=== PATIENT | male | born 1935 | race Caucasian/White ===

== ENCOUNTER 2018-07-15 08:53 | Inpatient (IN) | payer OTHER ==
--- NOTE | 2018-07-15 09:30 | EDPHY ---
H & P Time Seen by Provider: 07/15/18 09:12 HPI/ROS: Chief complaint. Abdominal pain HPI. 83-year-old male presents emergency department with 3 day history of abdominal pain. Initially it was more epigastric and now it is right lower quadrant and midline. Hurts to move. It is constant and dull. Does not radiate to his back. No nausea vomiting or diarrhea. No urinary frequency or dysuria. No fever. No chest pain or shortness of breath; he has had previous hernia surgery ROS 10 systems were reviewed and negative with the exception of the elements mentioned in the history of present illness Past Medical/Surgical History: Hernia surgery hypertension, thrombocytopenia Social History: , nonsmoker, no alcohol Smoking Status: Never smoked Physical Exam: General Appearance: Alert well-developed male mild distress vital signs are stable Eyes: Pupils equal and round no pallor or injection. ENT, Mouth: Mucous membranes are moist. Respiratory: There are no retractions, lungs are clear to auscultation. Cardiovascular: Regular rate and rhythm. Gastrointestinal: Abdomen is soft with periumbilical and right lower quadrant tenderness. No masses. Normal bowel sounds Neurological: Awake and alert, sensory and motor exams grossly normal. Skin: Warm and dry, no rashes. Musculoskeletal: Neck is supple nontender. Extremities symmetrical, full range of motion. Psychiatric: Patient is oriented X 3, there is no agitation. Constitutional: Initial Vital Signs Temperature (C) 36.6 C 07/15/18 08:58 Heart Rate 65 07/15/18 08:58 Respiratory Rate 17 07/15/18 08:58 Blood Pressure 188/84 H 07/15/18 08:58 O2 Sat (%) 94 07/15/18 08:58 O2 Delivery Mode Room Air Allergies/Adverse Reactions: amlodipine Allergy (Verified 07/15/18 12:00) Other-Enter Comments atenolol Allergy (Verified 07/15/18 12:00) Other-Enter Comments Home Medications: Medication Instructions Recorded Aspirin [Aspirin 81mg (*)] 81 mg PO DAILY 07/15/18 C/E/Zn/Cu/OM3/DHA/EPA/LUT/ZEAX 1 each PO BID 07/15/18 [Preservision Areds 2 Softgel] Hydroxyurea [Hydrea 500 mg (*)] 500 mg PO MWF@07/15/18 Hydroxyurea [Hydrea 500 mg (*)] 500 mg PO SUTUTHSA 07/15/18 Irbesartan [Avapro 150 mg (*)] 150 mg PO DAILY 07/15/18 Lisinopril 60 mg PO DAILY 07/15/18 Omeprazole 20 mg PO DAILY 07/15/18 Simvastatin [Zocor] 20 mg PO DAILY 07/15/18 Medical Decision Making - Diagnostics EKG Interpretation: EKG interpreted by me shows normal sinus rhythm normal interval. There is left axis deviation and left anterior fascicular block. No significant ST elevation or depression. No arrhythmia. The rate is 70 Imaging Results: Imaging Impressions Abdomen CT 07/15/18 09:38 Impression: 1. Focus of fat stranding and phlegmonous change measuring 4.5 cm subjacent to the omental surface in the supraumbilical mid abdomen. This is adjacent to several small bowel loops but is far from the colon. Differential includes omental infarct, mesenteric infection, or acute fat necrosis, less likely epiploic appendicitis. No definite hernia repair material extends to this level. No drainable abscess at this time. Recommend repeat imaging in 4 weeks to ensure resolution. 2. Reactive ileitis and small amount of mesenteric edema/fluid. 3. Dilatation of the common bile duct measuring up to 1.3 cm. There is also a stone within the gallbladder. Recommend correlation with liver enzymes and obtaining ERCP or MRCP for further evaluation. 4. Right middle lobe nodules measuring up to 5.6 mm. Would consider 12 month follow-up CT. 5. 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 If patient is exhibiting signs of mesenteric ischemia , would consider interventional radiology consultation. Findings and recommendations discussed with TASHA JAMES at 1115 hour, 2018. CT abdomen pelvis reviewed by me and discussed with Radiology shows fat stranding likely due to omental infarct. The common bile duct is also dilated Procedures: IV normal saline. Morphine and Dilaudid for pain ED Course/Re-evaluation: Patient and I discussed imaging and laboratory evaluation. We discussed treatment plan including recommendation for surgical consult and admission. He and his expressed understanding and agreement I consulted discussed the case with Dr. Hatch for surgery who sees the patient in the ED I consulted discussed the case with Dr. Fountain, hospitalist who agrees to the admission Differential Diagnosis: I considered appendicitis, diverticulitis. 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3-5.0) Potassium 5.0 mEq/L mEq/L (3.5-5.2) POC Chloride 103 mEq/L mEq/L (97-110) Chloride 106 mEq/L mEq/L (97-110) Carbon Dioxide 23 mEq/l mEq/l (22-31) POC Total CO2 27 mEq/L mEq/L (22-31) Anion Gap 7 mEq/L mEq/L (6-14) POC BUN 36 mg/dL H mg/dL (7-23) BUN 26 mg/dL H mg/dL (7-23) Creatinine 1.1 mg/dL mg/dL (0.7-1.3) POC Creatinine 2.8 mg/dL H mg/dL (0.7-1.3) Estimated GFR > 60 Glucose 114 mg/dL H mg/dL (70-100) POC Glucose 131 mg/dL H mg/dL (70-100) Calcium 9.1 mg/dL mg/dL (8.5-10.4) Total Bilirubin 0.7 mg/dL mg/dL (0.1-1.4) Conjugated Bilirubin 0.4 mg/dL mg/dL (0.0-0.5) Unconjugated Bilirubin 0.3 mg/dL mg/dL (0.0-1.1) AST 27 IU/L IU/L (17-59) ALT 19 IU/L L IU/L (21-72) Alkaline Phosphatase 77 IU/L IU/L (38-126) Total Protein 7.1 g/dL g/dL (6.3-8.2) Albumin 3.8 g/dL g/dL (3.5-5.0) Lipase 103 IU/L IU/L (23-300) 07/15/18 09:13 WBC 10.34 10^3/uL H 10^3/uL (3.80-9.50) RBC 4.33 10^6/uL L 10^6/uL (4.40-6.38) Hgb 14.9 g/dL g/dL (13.7-17.5) POC Hgb Hct 46.3 % % (40.0-51.0) POC Hct MCV 106.9 fL H fL (81.5-99.8) MCH 34.4 pg H pg (27.9-34.1) MCHC 32.2 g/dL L g/dL (32.4-36.7) RDW 12.7 % % (11.5-15.2) Plt Count 377 10^3/uL 10^3/uL (150-400) MPV 11.1 fL fL (8.7-11.7) Neut % (Auto) 73.7 % % (39.3-74.2) Lymph % (Auto) 15.6 % % (15.0-45.0) Dickens % (Auto) 7.1 % % (4.5-13.0) Eos % (Auto) 2.3 % % (0.6-7.6) Baso % (Auto) 0.7 % % (0.3-1.7) Nucleat RBC Rel Count 0.0 % % (0.0-0.2) Absolute Neuts (auto) 7.63 10^3/uL H 10^3/uL (1.70-6.50) Absolute Lymphs (auto) 1.61 10^3/uL 10^3/uL (1.00-3.00) Absolute Monos (auto) 0.73 10^3/uL 10^3/uL (0.30-0.80) Absolute Eos (auto) 0.24 10^3/uL 10^3/uL (0.03-0.40) Absolute Basos (auto) 0.07 10^3/uL 10^3/uL (0.02-0.10) Absolute Nucleated RBC 0.00 10^3/uL 10^3/uL (0-0.01) Immature Gran % 0.6 % % (0.0-1.1) Immature Gran # 0.06 10^3/uL 10^3/uL (0.00-0.10) POC Sodium Sodium POC Potassium Potassium POC Chloride Chloride Carbon Dioxide POC Total CO2 Anion Gap POC BUN BUN Creatinine POC Creatinine Estimated GFR Glucose POC Glucose Calcium Total Bilirubin Conjugated Bilirubin Unconjugated Bilirubin AST ALT Alkaline Phosphatase Total Protein Albumin Lipase Medications Given: Discontinued Medications Sodium Chloride (Ns) 1,000 mls @ 0 mls/hr IV EDNOW ONE; Wide Open PRN Reason: Protocol Stop: 07/15/18 09:39 Last Admin: 07/15/18 09:43 Dose: 1,000 mls Morphine Sulfate (Morphine) 6 mg IVP EDNOW ONE Stop: 07/15/18 09:39 Last Admin: 07/15/18 09:44 Dose: 4 mg Morphine Sulfate (Morphine) 2 mg IVP ONCE ONE Stop: 07/15/18 12:25 Last Admin: 07/15/18 12:28 Dose: 2 mg Ondansetron HCl (Zofran) 4 mg IVP EDNOW ONE Stop: 07/15/18 09:51 Last Admin: 07/15/18 09:51 Dose: 4 mg Point of Care Test Results: Chemistry 07/15/18 10:00 POC Sodium 140 mEq/L mEq/L (135-145) POC Potassium 5.7 mEq/L H mEq/L (3.3-5.0) POC Chloride 103 mEq/L mEq/L (97-110) POC Total CO2 27 mEq/L mEq/L (22-31) POC BUN 36 mg/dL H mg/dL (7-23) POC Creatinine 2.8 mg/dL H mg/dL (0.7-1.3) POC Glucose 131 mg/dL H mg/dL (70-100) ISTAT H&H 07/15/18 10:00 POC Hgb 16.3 gm/dL gm/dL (13.7-17.5) POC Hct 48 % % (40-51) Departure - Departure Disposition: [facility] Inpatient Acute Clinical Impression: Abdominal pain Qualifiers: Abdominal location: periumbilical Qualified Code(s): R10.33 - Periumbilical pain Condition: Fair
[2018-07-15] MEDS ORDERED: NS 1,000 ML IV ONE (09:38)
[2018-07-15 09:46] LABS: PLATELET COUNT 377 10^3/uL (150-400)
[2018-07-15] MEDS ORDERED: ONDANSETRON 4 MG/2 ML VIAL ONE ×2 (09:49→22:03)
[2018-07-15] MEDS ORDERED: ONDANSETRON 4 MG/2 ML VIAL IVP ONE (09:50)
[2018-07-15] MEDS ORDERED: HYDROmorphONE/DILAUDID 1 MG/ML INJ IVP PRN ×2 (13:36→22:46)
--- NOTE | 2018-07-15 15:03 | CPEKG ---
Test Reason : OPEN Blood Pressure : / mmHG Vent. Rate : 070 BPM Atrial Rate : 071 BPM P-R Int : 168 ms QRS Dur : 105 ms QT Int : 389 ms P-R-T Axes : 026 -63 026 degrees QTc Int : 420 ms Sinus rhythm Left anterior fascicular block Confirmed by Tasha Caceres ([id number]) on 07/15/2018 3:03:18 PM Referred By: TASHA CACERES Confirmed By:Tasha Caceres
--- NOTE | 2018-07-15 15:24 | GCON ---
[f rep st] CONSULTATION DATE OF CONSULTATION: 07/15/2018 CHIEF COMPLAINT: Abdominal pain. HISTORY OF PRESENT ILLNESS: The patient is an 83-year-old man, who started having intermittent abdominal pain starting Saturday. It would come and go. There was no precipitating factor. The pain is worse in the right upper quadrant and the mid abdomen. He was tolerating a normal diet and having regular bowel movements. This morning, he woke up and felt that he was feeling improved, when all of a sudden he had acute onset of the pain and presented to the emergency room. He had laboratory work performed and a CT scan performed. His white count is 10.[address] scan shows focus of fat stranding and phlegmon near the omental surface in the supraumbilical area. This could represent omental infarct or mesenteric infection. PAST MEDICAL HISTORY: Includes hypertension, thrombocytopenia. SURGICAL HISTORY: Includes laparoscopic bilateral inguinal hernia repair. MEDICATIONS: Include hydroxyurea, aspirin, irbesartan, lisinopril, omeprazole, simvastatin. ALLERGIES: Include amlodipine, which caused his feet to swell, and atenolol, which made him bradycardic into the 40s. SOCIAL HISTORY: He is a nonsmoker and he is . FAMILY HISTORY: Noncontributory. REVIEW OF SYSTEMS: Denies fevers, chills, respiratory symptoms, chest pain, constipation, diarrhea. PHYSICAL EXAMINATION: VITAL SIGNS: 36.6, 65, 188/84, 17, 94%. GENERAL: Pleasant, obese man lying on gurney, at bedside. HEENT: Normocephalic. No gross hearing deficits. Mucous membranes moist. Pupils equal and round. LUNGS: Clear to auscultation bilaterally. No increased work of breathing. CARDIAC: Regular rate, no peripheral edema. ABDOMEN: Bowel sounds are present. He is tender to percussion in the right upper quadrant. He does have a fullness superior to his umbilicus. He does not have pain in the lower pelvis. MUSCULOSKELETAL: Normal nails. SKIN: Warm and dry. PSYCH: Mood and affect normal. NEURO: Grossly intact. RESULTS REVIEWED: I personally reviewed the result of his laboratory work, which shows a slightly elevated white blood cell count, and I personally reviewed the images and showed them to the patient. It does show an area of inflammation superior to the umbilicus and above the bowel. I also discussed the case with Dr. Caceres. IMPRESSION AND PLAN: The patient is an 83-year-old man with a likely infarct of the omentum. I recommend that he be admitted for pain control. We can observe him. If he is continuing to have high usage of narcotics, then one option would be to take him to the operating room for diagnostic laparoscopy and excision of the necrotic fat. However, oftentimes this will resolve with anti-inflammatories. I recommend that he be on ibuprofen 600 mg p.o. three times daily. I have told the patient to be n.p.o. after midnight in the event that we would need to go to surgery. I do not see an indication for antibiotics at this time. His liver function tests are within normal limits. His potassium and creatinine were rechecked and are now within normal limits. /[id number]/MODL MTDD
[2018-07-15] MEDS ORDERED: IBUPROFEN 600 MG TAB PO PRN (15:40)
[2018-07-15] MEDS ORDERED: ONDANSETRON 4 MG/2 ML VIAL IVP PRN ×2 (15:42→21:56)
[2018-07-15] MEDS ORDERED: NS 1,000 ML IV SCH (15:45)
--- NOTE | 2018-07-15 16:28 | GHP ---
[f rep st] HISTORY AND PHYSICAL DATE OF ADMISSION: 07/15/2018 CHIEF COMPLAINT: Abdominal pain. HISTORY: Cash is an 83-year-old male who had just returned from a trip with his and he was unl oading some suitcases from the car and felt onset of abdominal pain. Initially he thought he just pu lled a muscle. Pain was initially in his epigastric region, but has since moved down to his right lo wer quadrant. It is a constant dull pain that is worse with movement. He was taking Advil which ini tially improved the pain and this morning he was relatively pain-free even, and then later in the day he had acute onset of a very severe pain attack prompting a trip to the emergency room. He has been able to eat and drink normally with normal bowel movements. He has had a low-grade fever in the ER per the at 99, although I do not see documentation of this in the record. He has otherwise been doing well and is relatively healthy at baseline. His only recent medical issue has been some titra tion of blood pressure medications under the direction of his Primary Care. PAST MEDICAL HISTORY: 1. Hypertension. 2. Hyperlipidemia. PAST SURGICAL HISTORY: Achilles tendon repair. MEDICATIONS: Please see computerized record for full detailed list. ALLERGIES: Amlodipine and atenolol. SOCIAL HISTORY: No smoking. No alcohol. He lives with his . REVIEW OF SYSTEMS: Complete review of systems obtained. Review of systems negative regarding consti tutional, HEENT, GI, pulmonary, cardiovascular, , hematology, skin, musculoskeletal, endocrine, psy ch except for positives as in HPI. FAMILY HISTORY: Reviewed, noncontributory to presenting complaint. PHYSICAL EXAMINATION: GENERAL: Well-developed, well-nourished male, in no acute distress. VITAL SI GNS: Temperature 36.8, pulse 79, blood pressure 101/59, saturating 93% on room air. EYES: Normal c onjunctivae. Pupils equal and reactive to light. ENT: Normal ears and nose. Hearing intact. Norm al teeth. Oropharynx moist. NECK: Trachea midline. No thyromegaly. CHEST: Normal respiratory ef fort. Lungs clear to auscultation bilaterally. CARDIOVASCULAR: Regular rhythm. No murmur. No low er extremity edema. ABDOMEN: Soft, distended. Positive tenderness to palpation, worse on the right side, although no rebound or guarding. No hepatosplenomegaly. SKIN: Warm, dry, intact without ann marie h. MUSCULOSKELETAL: No cyanosis or clubbing. Strength 5/5 upper and lower extremities. NEUROLOGIC : Cranial nerves intact. Normal sensation to light touch. PSYCH: Alert and oriented x3. Normal aff ect. Normal judgment. Normal memory. LABORATORY DATA: White count 10.34, hematocrit 46.3, platelets 377. Sodium 134, potassium 4.2, chlo ride 107, bicarb 21, BUN 29, creatinine 1.0, glucose 101. LFTs are negative. Urinalysis is negative . EKG viewed by me, my personal interpretation: Normal sinus rhythm. No ST-T wave changes. CT sca n of the abdomen and pelvis shows a phlegmon adjacent to the small bowel and omentum consistent with infarct versus infection versus necrosis versus epiploic appendicitis. He has reactive ileitis, dila wyatt common bile duct 1.3 cm with stone in the gallbladder, right middle lobe nodules for which follow up CT scan recommended in 12 months. 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 ASSESSMENT/PLAN: 1. Omental infarct. He has been seen by Dr. Hatch. The initial plan is for conservative management . Dr. Hatch requests he be n.p.o. after midnight in case they decide to proceed with surgery tomorro w. For now, we will prescribe ibuprofen as needed, as well as ongoing IV Dilaudid for pain control. 2. Dilated common bile duct with a gallstone. LFTs are normal. I suspect this is asymptomatic. 3. Hypertension. Continue home medications. 4. Hydroxyurea prescription, unclear what the diagnosis is related to this medication. We will clar dayana in the morning. 5. Pulmonary nodule. Followup CT scan in 12 months recommended. CODE STATUS: Full. ADMISSION STATUS: 1. We will admit to observation. Re-evaluate tomorrow regarding the ongoing need for hospitalizatio n. 2. DVT prophylaxis. He may go to surgery tomorrow, so we will hold off on pharmacologic prophylaxis at this time. /[id number]/MODL
[2018-07-15] MEDS: HYDROXYUREA 500 MG CAP PO SCH (17:48)
[2018-07-15] MEDS: oxyCODONE IR 5 MG TAB PO PRN (17:55)
[2018-07-15] MEDS ORDERED: BUPIVACAINE 0.5% 30 ML SDV ONE (19:20)
[2018-07-15] MEDS ORDERED: ceFAZolin 2 GM/DEXTROSE 100 ML IV ONE (20:39)
[2018-07-15] MEDS ORDERED: CEFAZOLIN 2 GM/DEXTROSE/100 ML BAG IV ONE (20:40)
--- NOTE | 2018-07-15 20:54 | PDANEPAE ---
ANE History of Present Illness Possible omental herniation ANE Past Medical History - Cardiovascular History Hx Hypertension: Yes - Pulmonary History Hx Oxygen in Use at Home: No Hx Sleep Apnea: No Sleep Apnea Screening Result - Last Documented: Negative - Endocrine History Hx Diabetes: No - Chronic Pain History Chronic Pain: No ANE Review of Systems Review of Systems: ANE Patient History - Allergies Allergies/Adverse Reactions: amlodipine Allergy (Verified 07/15/18 12:00) Other-Enter Comments atenolol Allergy (Verified 07/15/18 12:00) Other-Enter Comments - Home Medications Home Medications: Aspirin [Aspirin 81mg (*)] 81 mg PO DAILY 07/15/18 [Last Taken 07/15/18] C/E/Zn/Cu/OM3/DHA/EPA/LUT/ZEAX [Preservision Areds 2 Softgel] 1 each PO BID [Last Taken 07/15/18] Hydroxyurea [Hydrea 500 mg (*)] 500 mg PO MWF@07/15/18 [Last Taken 21:00] Hydroxyurea [Hydrea 500 mg (*)] 500 mg PO SUTUTHSA 07/15/18 [Last Taken 07/15/18 ] Irbesartan [Avapro 150 mg (*)] 150 mg PO DAILY 07/15/18 [Last Taken 07/15/18] Lisinopril 60 mg PO DAILY 07/15/18 [Last Taken 07/15/18] Omeprazole 20 mg PO DAILY 07/15/18 [Last Taken 07/15/18] Simvastatin [Zocor] 20 mg PO DAILY 07/15/18 [Last Taken 07/15/18] - NPO status NPO Status: no food or drink >8 hours NPO Since - Liquids (Date): 07/15/18 NPO Since - Liquids (Time): 12:00 NPO Since - Solids (Date): 07/15/18 NPO Since - Solids (Time): 12:00 - Anes Hx Anes Hx: no prior problems - Smoking Hx Smoking Status: Never smoked ANE Labs/Vital Signs - Labs Result Diagrams: 07/15/18 09:13 07/15/18 12:15 - Vital Signs Blood Pressure: 149/77 Heart Rate: 80 Respiratory Rate: 18 O2 Sat (%): 93 Height: 175 cm Weight: 90 kg ANE Physical Exam - Airway Neck exam: decreased ROM Mallampati Score: Class 3 Mouth exam: normal dental/mouth exam - Pulmonary Pulmonary: no respiratory distress - Cardiovascular Cardiovascular: regular rate and rhythym - ASA Status ASA Status: II, E ANE Anesthesia Plan Anesthesia Plan: general endotracheal anesthesia
[2018-07-15] MEDS ORDERED: LIDOCAINE 2% 5 ML SDV ONE (21:05)
[2018-07-15] MEDS ORDERED: PROPOFOL 200 MG/20 ML VIAL ONE (21:05)
[2018-07-15] MEDS ORDERED: fentaNYL 100 MCG/2 ML INJ ONE ×2 (21:05→22:28)
[2018-07-15] MEDS ORDERED: ROCURONIUM 50 MG/5 ML VIAL ONE ×2 (21:07→22:06)
--- NOTE | 2018-07-15 21:13 | SOAPPROG ---
SOAP Progress Note Assessment/Plan: Assessment: Pain still 6-7/10 even with Morphine. Will take to OR tonight to explore. Risks and benefits discussed Plan: 07/15/18 21:12 Objective: Vital Signs Temp Pulse Resp BP Pulse Ox 36.8 C 80 18 149/77 H 93 07/15/18 20:33 07/15/18 20:54 07/15/18 20:54 07/15/18 20:54 07/15/18 20:54 Laboratory Results 07/15/18 12:15 07/14/18 07/15/18 07/16/18 05:59 05:59 05:59 Intake Total 0 Balance 0 ICD10 Worksheet Patient Problems: Problems Problem Status Onset Abdominal pain Acute
[2018-07-15] MEDS ORDERED: PHENYLEPHRINE HCL 100 MCG/ML SYR ONE (21:21)
[2018-07-15] MEDS ORDERED: HYDROmorphONE/DILAUDID 2 MG/ML INJ IVP PRN (21:56)
[2018-07-15] MEDS ORDERED: fentaNYL 100 MCG/2 ML INJ IVP PRN (21:56)
[2018-07-15] MEDS ORDERED: NALOXONE HCL 0.4 MG/ML INJ IVP PRN (21:56)
[2018-07-15] MEDS ORDERED: PROMETHAZINE HCL 25 MG/ML INJ IVP PRN (21:56)
[2018-07-15] MEDS ORDERED: SUGAMMADEX SODIUM 200 MG/2 ML VIAL IVP ONE (22:27)
--- NOTE | 2018-07-15 22:32 | POSTOPPROG ---
Post Op Note Date of Operation: 07/15/18 Surgeon: Dyan Hatch Anesthesiologist: my Anesthesia: GET(General Endotracheal) Pre-op Diagnosis: abdominal pain Post-op Diagnosis: appendicitis and inflamed omentum Indication: 83 yo with abdominal pain and ? infarcted omentum Procedure: laparoscopy, lap appy, omentectomy Findings: inflamed omentum tethering small bowel. Inflamed appendix Inf/Abcess present in the surg proc area at time of surgery?: Yes Depth: Organ Space EBL: Minimal Specimen(s): appendix, omentum, fluid for culture and cytology
--- NOTE | 2018-07-15 22:49 | POSTANESTH ---
Post Anesthetic Evaluation Cardiovascular Status: Similar to Pre-Op Cond Respiratory Status: Similar to Pre-op Cond. Level of Consciousness/Mental Status: Alert and Oriented, Mildly Sleepy, Arousable Pain Control: Adequate, Prn Tx Ordered Nausea/Vomiting Control: Adequate, Prn Tx Ordered Complications Possibly Related to Anesthesia: None Noted
[2018-07-15] MEDS: PRESERVISION AREDS2 FORMULA EYE VIT 1 EACH PO SCH (23:34)
[2018-07-16] MEDS: oxyCODONE IR 5 MG TAB PO PRN ×2 (00:47→16:21)
[2018-07-16 04:59] LABS: PLATELET COUNT 343 10^3/uL (150-400)
--- NOTE | 2018-07-16 07:20 | GOP ---
[f rep st] OPERATIVE REPORT DATE OF OPERATION: 07/15/2018 SURGEON: Dyan Hatch MD ANESTHESIA: General. ANESTHESIOLOGIST: Patrick Hayward MD PREOPERATIVE DIAGNOSIS: Abdominal pain. POSTOPERATIVE DIAGNOSIS: Appendicitis and inflamed omentum. PROCEDURE PERFORMED: Diagnostic laparoscopy with laparoscopic appendectomy and partial omentectomy. FINDINGS: The omentum was tethered to the small bowel. The small bowel was very red and inflamed at the beginning of the case with a lot of fibrin around it. His appendix was enlarged. The omentum was extremely firm with a small area of necrosis. No distinct perforations noted SPECIMENS: 1. Fluid for microbiology. 2. Fluid for cytology. 3. Appendix. 4. Omentum. ESTIMATED BLOOD LOSS: 5 cc. INDICATIONS: The patient is an 83-year-old man who has had abdominal pain for 4 days prior to admission. Today it became worse and he presented to the emergency room. A CT scan was performed which showed a phlegmon or inflamed omentum. I initially decided to observe him, but despite morphine, his pain was the same. Due to his symptoms not changing despite narcotic medication, I decided to take him to the operating room. DESCRIPTION OF PROCEDURE: The patient was brought into the operating room, placed supine on the table, and general anesthesia was administered. His abdomen was prepped and draped in the usual sterile fashion. I infiltrated all sites with 0.5% Marcaine prior to making incisions. I elevated the skin and subcutaneous tissues in his left lower quadrant. I inserted the Veress needle, it passed the hanging drop test. His abdomen insufflated easily to a pressure of 15 mmHg. I placed a 5 mm trocar with a camera at this site. Under direct vision, I immediately saw thickened omentum and inflamed small bowel. There was fluid in the abdomen. I did suction this for microbiology and for cytology. I placed a second 5 mm trocar in the left upper quadrant. I was able to gently free the omentum away from the abdominal wall. I then inserted a third 5 mm trocar in between the first and second trocars. I ran the small bowel carefully dissecting the loops free, which had a lot of fibrin on them until I encountered the terminal ileum distally and ligament of trietz proximally . I examined the cecum and the appendix was retrocecal and inflamed. I did not see a distinct perforation. I grasped the appendix. I divided the mesoappendix with the Harmonic Scalpel. I upsized the middle trocar to a 10 mm trocar. I transected the base with an Endo-GIANCARLO 45 white load. Hemostasis was achieved at the staple line. Appendix was placed in an endocatch bag and removed via the 10 mm trocar. I then continued to explore his abdomen and the piece of omentum that had been overlying the small bowel was extremely thickened. The omentum was overlying the small bowel that had fibrin but not tethered to the appendix, I removed the distal omentum with the Harmonic Scalpel. I placed in an EndoCatch bag. I had to enlarge the 10 mm trocar to accommodate removing the omentum. Each specimen was sent to Pathology for permanent. I irrigated the abdomen with a liter of fluid. I explored and no injuries noted and no additional areas of concern. No signs of carcinamatosis. No sign of bowel or stomach perforation. I closed the peritoneum with 0 Vicryl. I closed fascia with 0 PDS. I closed skin with 4-0 Monocryl. Dermabond applied. A total of 30 cc of 0.5% Marcaine was used to inject the areas. He was awakened in the operating room, extubated, transferred to PACU in stable condition. /[id number]/MODL MTDD
[2018-07-16] MEDS ORDERED: IRBESARTAN 150 MG TAB PO SCH (09:00)
[2018-07-16] MEDS ORDERED: LISINOPRIL 20 MG TAB PO SCH (09:00)
[2018-07-16] MEDS: PANTOPRAZOLE SODIUM 40 MG TAB PO SCH (09:28)
[2018-07-16] MEDS: PRESERVISION AREDS2 FORMULA EYE VIT 1 EACH PO SCH ×2 (09:30→21:15)
[2018-07-16] MEDS: ATORVASTATIN CALCIUM 10 MG TAB PO SCH (09:30)
[2018-07-16] MEDS: HYDROXYUREA 500 MG CAP PO SCH ×2 (09:32→21:15)
--- NOTE | 2018-07-16 12:47 | SOAPPROG ---
SOAP Progress Note Assessment/Plan: Assessment/Plan: 83 year old male s/p lap appy with partial omenectomy POD 1 Continue IV antibiotics Pain control Cultures pending Sips/chips today until bowel function returns S: Laying comfortably in bed, no nausea, has not passed flatus yet. O: pleasant well nourished, NAD Lungs CTA, no increased WOB HR regular Abdomen distended, non painful to palpation Plan: 07/15/18 21:12 07/16/18 12:45 07/16/18 12:49 07/16/18 18:51 Objective: Vital Signs Temp Pulse Resp BP Pulse Ox 37.0 C 73 12 141/85 H 92 07/16/18 11:29 07/16/18 12:34 07/16/18 11:29 07/16/18 12:34 07/16/18 12:34 Microbiology 07/15/18 21:35 Gram Stain - Final Peritoneal Fluid - Aspirate Laboratory Results 07/16/18 04:30 07/16/18 04:30 07/15/18 07/16/18 07/17/18 05:59 05:59 05:59 Intake Total 1630 Output Total 20 Balance 1610 ICD10 Worksheet Patient Problems: Problems Problem Status Onset Abdominal pain Acute
--- NOTE | 2018-07-16 16:08 | ASMTCMCOM ---
CM Note CM Note Notes: Pt admitted to hospital for abdominal pain. Pt taken to surgery for appendicitis and omentum infarct. He is normally independent and lives at home with his . OT recommends home, PT pending, CM w/f. DC Plan: TBD Date Signed: 07/16/2018 04:07 PM Electronically Signed By:Manisha Boston RN
[2018-07-16] MEDS: ACETAMINOPHEN 325 MG TAB PO PRN (18:21)
--- NOTE | 2018-07-16 18:44 | PDMN ---
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 OR notes reveal small bowel very red/inflamed and omentum w/ small area of necrosis, pt switched to IP status as pt requires additional MN for ongoing IVF and IV antibx , IV Flagyl, return of bowel fxn pending, on sips/chips until that happens, pt meets [facility] [place] criteria for infection and not meeting d/c readiness criteria. Hx HTN, HLD. Change to IP status 07/16/18@0921 per order.
--- NOTE | 2018-07-16 21:04 | HOSPPROG ---
Hospitalist Progress Note Assessment/Plan: * Acute appendicitis with adjacent inflamed omentum -s/p appy and omental resection -empiric Ceftriaxone/Flagyl * Post-op ileus -await return of bowel function -on clear liquids * ARF -on ACEI and ARB -DC lisinopril -IVF * Dilated CBD with gallstone -LFT normal * Hydroxyurea -clarify diagnosis in am * Pulmonary nodule -f/u CT 12 months Subjective: No flatus Objective: Vital Signs Temp Pulse Resp BP Pulse Ox 36.5 C 77 18 139/69 H 92 07/16/18 19:21 07/16/18 19:21 07/16/18 19:21 07/16/18 19:21 07/16/18 19:21 Laboratory Tests 07/16/18 07/16/18 04:30 04:30 WBC 15.68 H Hct 40.1 Plt Count 343 Creatinine 1.4 H Op report reviewed - appendicitis with omental inflammation, small area necrosis - Physical Exam Constitutional: no apparent distress, appears nourished, not in pain Cardiovascular: regular rate and rhythym, no murmur, rub, or gallop Respiratory: no respiratory distress, no rales or rhonchi, clear to auscultation Gastrointestinal: distension, No normoactive bowel sounds, No tenderness Skin: no rashes or abrasions, no fluctuance, no induration Neurologic: AAOx3, sensation intact bilaterally Psychiatric: interacting appropriately, not anxious, not encephalopathic, thought process linear ICD10 Worksheet Patient Problems: Problems Problem Status Onset Abdominal pain Acute
[2018-07-17] MEDS: ACETAMINOPHEN 325 MG TAB PO PRN ×3 (02:59→21:04)
[2018-07-17 06:10] LABS: PLATELET COUNT 401 10^3/uL (150-400)
[2018-07-17] MEDS: ASPIRIN 81 MG CHEWABLE TAB PO SCH (09:35)
[2018-07-17] MEDS: PANTOPRAZOLE SODIUM 40 MG TAB PO SCH (09:35)
[2018-07-17] MEDS: ATORVASTATIN CALCIUM 10 MG TAB PO SCH (09:35)
[2018-07-17] MEDS: PRESERVISION AREDS2 FORMULA EYE VIT 1 EACH PO SCH ×2 (09:35→21:04)
[2018-07-17] MEDS: HYDROXYUREA 500 MG CAP PO SCH (09:58)
--- NOTE | 2018-07-17 11:46 | ASMTCMCOM ---
CM Note CM Note Notes: PT/OT has cleared pt for home, will dc home w/support of his when medically stable. CM available for any changes. DC Plan: Independent Date Signed: 07/17/2018 11:46 AM Electronically Signed By:Manisha Boston RN
--- NOTE | 2018-07-17 13:30 | SOAPPROG ---
SOAP Progress Note Assessment/Plan: Assessment/Plan: 83 year old male s/p lap appy with partial omenectomy POD 2 Continue IV antibiotics - WBC going up Pain control Cultures and path pending Clears adat S: Laying comfortably in bed, no nausea, passing flatus O: pleasant well nourished, NAD Lungs CTA, no increased WOB HR regular Abdomen less distended, non painful to palpation, BS hypoactive Plan: 07/15/18 21:12 07/16/18 12:45 07/16/18 12:49 07/16/18 18:51 07/17/18 13:29 Objective: Vital Signs Temp Pulse Resp BP Pulse Ox 36.5 C 88 16 147/77 H 91 L 07/17/18 11:42 07/17/18 11:42 07/17/18 11:42 07/17/18 11:42 07/17/18 11:42 Laboratory Results 07/17/18 04:33 07/17/18 04:23 07/16/18 07/17/18 07/18/18 05:59 05:59 05:59 Intake Total 450 Balance 450 ICD10 Worksheet Patient Problems: Problems Problem Status Onset Abdominal pain Acute
[2018-07-17] MEDS ORDERED: BISACODYL 10 MG SUPP PR PRN (13:35)
[2018-07-17] MEDS ORDERED: POLYETHYLENE GLYCOL 3350 17 GM PKT PO PRN (13:35)
[2018-07-17] MEDS ORDERED: MAGNESIUM HYDROXIDE 30 ML UDCUP PO PRN (13:35)
[2018-07-17] MEDS ORDERED: LACTULOSE 20 GM/30 ML UDCUP PO PRN (13:35)
--- NOTE | 2018-07-17 17:17 | HOSPPROG ---
Hospitalist Progress Note Assessment/Plan: * Omental abscess - unclear source -s/p resection + I&D -empiric Ceftriaxone/Flagyl * Acute appy s/p lap appy * Post-op ileus -await return of bowel function -on clear liquids * ARF -on ACEI and ARB -DC lisinopril -IVF * Dilated CBD with gallstone -LFT normal * Essential Thrombocytosis -hydroxyurea * Pulmonary nodule -f/u CT 12 months Subjective: no new compliants, some flatus Objective: Vital Signs Temp Pulse Resp BP Pulse Ox 36.9 C 87 18 143/79 H 91 L 07/17/18 15:51 07/17/18 15:51 07/17/18 15:51 07/17/18 15:51 07/17/18 15:51 Laboratory Results 07/17/18 04:33 07/17/18 04:23 07/16/18 07/17/18 07/18/18 05:59 05:59 05:59 Intake Total 450 Balance 450 d/w Dr. diggs - will consult ID path reviewed - omental abscess with fibrosis - Physical Exam Constitutional: no apparent distress, appears nourished, not in pain Cardiovascular: regular rate and rhythym, no murmur, rub, or gallop Respiratory: no respiratory distress, no rales or rhonchi, clear to auscultation Gastrointestinal: normoactive bowel sounds, soft, non-tender abdomen, no palpable masses Skin: no rashes or abrasions, no fluctuance, no induration Neurologic: AAOx3, sensation intact bilaterally Psychiatric: interacting appropriately, not anxious, not encephalopathic, thought process linear ICD10 Worksheet Patient Problems: Problems Problem Status Onset Abdominal pain Acute
[2018-07-17] MEDS: SENNOSIDES/DOCUSATE SODIUM TAB PO SCH (21:04)
[2018-07-18 05:24] LABS: PLATELET COUNT 445 10^3/uL (150-400)
[2018-07-18] MEDS: ASPIRIN 81 MG CHEWABLE TAB PO SCH (08:56)
[2018-07-18] MEDS: ATORVASTATIN CALCIUM 10 MG TAB PO SCH (08:57)
[2018-07-18] MEDS: PRESERVISION AREDS2 FORMULA EYE VIT 1 EACH PO SCH ×2 (08:57→20:47)
[2018-07-18] MEDS: SENNOSIDES/DOCUSATE SODIUM TAB PO SCH ×2 (08:58→23:34)
[2018-07-18] MEDS: PANTOPRAZOLE SODIUM 40 MG TAB PO SCH (08:58)
[2018-07-18] MEDS: HYDROXYUREA 500 MG CAP PO SCH ×2 (08:58→20:47)
[2018-07-18] MEDS: IRBESARTAN 150 MG TAB PO SCH (08:58)
--- NOTE | 2018-07-18 09:39 | PDCONSULT ---
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 Unclear why patient has omental abscess, no clear source identified intraop or on CT scan. Cultures show pure culture of Streptococcus intermedius. Leukocytosis noted post op, somewhat slow to resolve. --continue to monitor abdominal exam, today seems most c/w with ileus. WBC slightly improved. Hold off on further imaging and re-assess daily --agree with current abx regimen of ceftriaxone and flagyl, if anaerobic cx negative for next 24-48h will likely dc flagyl --could consider dental evaluation as an outpatient --follow up sensi on s. intermedius --care coordinated with Dr. Fountain and Dr. Hatch Chief complaint: elevated WBC postoperatively Referring MD: Dr. Diana Fountain, hospitalist History of present illness: This is a pleasant 83 year-old male, with a PMHx that includes essential thrombocytosis and chronic leukocytosis, who I am asked to see in consultation for elevated WBCs s/p appendectomy and omentectomy performed on 07/15/[address] Dyan Hatch. Patient's problems date back to when he returned home from [place], [place] and while he was pulling suitcases into the house he felt left-sided abdominal pain which he initially attributed to a pulled muscle. The pain continued to gradually worsen for a couple of days. Then, on Saturday morning when he was in the process of getting a cup of coffee the pain became excruciating causing him to present to the ER on 07/15/18 complaining lower bilateral abdominal pain which did not radiate. Denies associated fevers, chills , night sweats, nausea, vomiting, diarrhea, weight loss, or decreased energy levels. His laboratories were noted for mild leukocytosis and the CT scan showed fat stranding and phlegmon near the omental surface in the supraumbilical area. Subsequently, he underwent laparoscopic appendectomy with partial omentectomy. Intraoperative findings include: omentum was tethered to the small bowel, the small bowel was very red and inflamed at the beginning of the case with a lot of fibrin around it, his appendix was enlarged, the omentum was extremely firm with a small area of necrosis, no distinct perforations noted. The pathology report with dx of periappendicitis, omental abscess, eosinophilic inflammation, and mild fibrosis. He was started on IV ceftriaxone 1 gram daily and metronidazole on 07-15-2018. No side effects from therapy, no rash or diarrhea. Today, he states that he wants to be well. The abdominal pain that he was having preoperatively has resolved, but now complains of abdominal bloating and constipation. No associated fevers, rigors, night sweats , vomiting, diarrhea, or skin rash. Does provide that a new hypertensive medication was added to his regimen one week ago, called irbesartan. No recent international travel. Last abx exposure was over 10 years ago during hernia repair. 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 Allergies: 3 Allergy/AdvReac Type Severity Reaction Status Date / Time amlodipine Allergy Other-Enter Verified 07/15/18 12:00 Comments atenolol Allergy Other-Enter Verified 07/15/18 12:00 Comments Medications: 3 Generic Name Dose Route Start Last Admin Trade Name Freq PRN Reason Stop Dose Admin Acetaminophen 650 mg 07/15/18 15:42 07/17/18 21:04 Tylenol PO 01/11/19 15:41 650 mg Q4 PRN Administration Pain, Mild/Fever, Can Take PO Aspirin 81 mg 07/17/18 09:00 07/18/18 08:56 Aspirin PO 01/13/19 08:59 81 mg DAILY GABRIEL Administration Atorvastatin Calcium 10 mg 07/16/18 09:00 07/18/18 08:57 Lipitor PO 01/12/19 08:59 10 mg DAILY GABRIEL Administration Bisacodyl 10 mg 07/17/18 13:35 Dulcolax Rectal HI 01/13/19 13:34 DAILY PRN Constipation Protocol Hydromorphone HCl 0.2 - 0.4 mg 07/15/18 22:46 Dilaudid IVP 07/25/18 13:35 Q1H PRN Pain, Severe Unable to Take PO Hydroxyurea 500 mg 07/16/18 09:00 07/18/18 08:58 Hydrea PO 01/12/19 08:59 500 mg MWF@ GABRIEL Administration Hydroxyurea 500 mg 07/15/18 15:45 07/17/18 09:58 Hydrea PO 01/11/19 15:44 500 mg SUTUTHSA GABRIEL Administration Ceftriaxone Sodium/Dextrose 50 mls @ 100 mls/hr 07/15/18 23:00 07/18/18 08:57 Rocephin 1 Gm (Premix) IV 08/14/18 22:59 50 mls DAILY GABRIEL Administration Protocol Metronidazole/Sodium Chloride 100 mls @ 100 mls/hr 07/16/18 14:00 07/18/18 06 :28 Flagyl 500 Mg (Premix) IV 08/15/18 13:59 100 mls Q8HRS GABRIEL Administration Protocol Irbesartan 300 mg 07/18/18 08:33 07/18/18 08:58 Avapro PO 01/12/19 08:59 300 mg DAILY GABRIEL Administration Lactulose 20 gm 07/17/18 13:35 Cephulac PO 01/13/19 13:34 TID PRN Constipation Protocol Magnesium Hydroxide 30 ml 07/17/18 13:35 Milk Of Magnesia PO 01/13/19 13:34 DAILY PRN Constipation Protocol Multivitamins/Minerals 1 each 07/15/18 21:00 07/18/18 08:57 Preservision Areds2 Formula PO 01/11/19 20:59 1 each BID GABRIEL Administration Ondansetron HCl 4 mg 07/15/18 15:42 Zofran IVP 01/11/19 15:41 Q4 PRN Nausea/Vomiting, Can't Take PO Oxycodone HCl 5 - 10 mg 07/15/18 15:42 07/16/18 16:21 Oxycodone Ir PO 07/25/18 15:41 5 mg Q3HRS PRN Administration Pain, Severe Able to Take PO Pantoprazole Sodium 40 mg 07/16/18 09:00 07/18/18 08:58 Protonix PO 01/12/19 08:59 40 mg DAILY GABRIEL Administration Polyethylene Glycol 17 gm 07/17/18 13:35 Miralax PO 01/13/19 13:34 DAILY PRN Constipation, patient prefers Protocol Senna/Docusate Sodium 1 - 2 tab 07/17/18 21:00 07/18/18 08:58 Senokot-S PO 01/13/19 20:59 2 tab BID GABRIEL Administration Protocol ROS: 10 systems were reviewed and are negative with the exception of the elements mentioned in the HPI. Vitals: 3 Temp Pulse Resp BP Pulse Ox 36.7 C 77 18 157/89 H 92 07/18/18 07:23 07/18/18 07:23 07/18/18 07:23 07/18/18 08:58 07/18/18 07:23 Physical exam: General: Well-nourished, well-developed in no acute distress. Appears nontoxic. HEENT: No scleral icterus, conjunctival injection. Oropharynx shows dry mucous membranes with no thrush. Neck: Supple, no nuchal rigidity, trachea midline. Chest: Clear to auscultation bilaterally without adventitious sounds. Respiratory effort is normal. Crackles in the right base. Cardiovascular: Regular rate rhythm without murmurs, gallops or rubs. Abdomen: Soft, significant abdominal distension, minimal diffuse tenderness to palpation, decreased bowel sounds, no guarding, x3 lapraoscopic incisions c/d/ i. : No Chavez. Musculoskeletal: No cyanosis, clubbing or edema. Skin: No rashes. No stigmata of endocarditis. Neuro: Moving all 4 ext equally, conversational, [place] Laboratory results: 3 WBC 15.04 10^3/uL (3.80-9.50) H 07/18/18 04:23 RBC 3.81 10^6/uL (4.40-6.38) L 07/18/18 04:23 Hgb 13.0 g/dL (13.7-17.5) L 07/18/18 04:23 POC Hgb 16.3 gm/dL (13.7-17.5) 07/15/18 10:00 Hct 39.8 % (40.0-51.0) L 07/18/18 04:23 POC Hct 48 % (40-51) 07/15/18 10:00 MCV 104.5 fL (81.5-99.8) H 07/18/18 04:23 MCH 34.1 pg (27.9-34.1) 07/18/18 04:23 MCHC 32.7 g/dL (32.4-36.7) 07/18/18 04:23 RDW 12.6 % (11.5-15.2) 07/18/18 04:23 Plt Count 445 10^3/uL (150-400) H 07/18/18 04:23 MPV 10.5 fL (8.7-11.7) 07/18/18 04:23 Neut % (Auto) 81.7 % (39.3-74.2) H 07/18/18 04:23 Lymph % (Auto) 5.4 % (15.0-45.0) L 07/18/18 04:23 Parmer % (Auto) 8.9 % (4.5-13.0) 07/18/18 04:23 Eos % (Auto) 2.0 % (0.6-7.6) 07/18/18 04:23 Baso % (Auto) 0.3 % (0.3-1.7) 07/18/18 04:23 Nucleat RBC Rel Count 0.0 % (0.0-0.2) 07/18/18 04:23 Absolute Neuts (auto) 12.28 10^3/uL (1.70-6.50) H 07/18/18 04:23 Absolute Lymphs (auto) 0.81 10^3/uL (1.00-3.00) L 07/18/18 04:23 Absolute Monos (auto) 1.34 10^3/uL (0.30-0.80) H 07/18/18 04:23 Absolute Eos (auto) 0.30 10^3/uL (0.03-0.40) 07/18/18 04:23 Absolute Basos (auto) 0.05 10^3/uL (0.02-0.10) 07/18/18 04:23 Absolute Nucleated RBC 0.00 10^3/uL (0-0.01) 07/18/18 04:23 Immature Gran % 1.7 % (0.0-1.1) H 07/18/18 04:23 Immature Gran # 0.26 10^3/uL (0.00-0.10) H 07/18/18 04:23 RBC/WBC/PLT Morphology TNP 07/16/18 04:30 Platelet Estimate TNP 07/16/18 04:30 POC Sodium 140 mEq/L (135-145) 07/15/18 10:00 Sodium 131 mEq/L (135-145) L 07/18/18 04:23 POC Potassium 5.7 mEq/L (3.3-5.0) H 07/15/18 10:00 Potassium 4.2 mEq/L (3.5-5.2) 07/18/18 04:23 POC Chloride 103 mEq/L (97-110) 07/15/18 10:00 Chloride 102 mEq/L (97-110) 07/18/18 04:23 Carbon Dioxide 20 mEq/l (22-31) L 07/18/18 04:23 POC Total CO2 27 mEq/L (22-31) 07/15/18 10:00 Anion Gap 9 mEq/L (6-14) 07/18/18 04:23 POC BUN 36 mg/dL (7-23) H 07/15/18 10:00 BUN 28 mg/dL (7-23) H 07/18/18 04:23 Creatinine 1.1 mg/dL (0.7-1.3) 07/18/18 04:23 POC Creatinine 2.8 mg/dL (0.7-1.3) H 07/15/18 10:00 Estimated GFR > 60 07/18/18 04:23 Glucose 112 mg/dL (70-100) H 07/18/18 04:23 POC Glucose 131 mg/dL (70-100) H 07/15/18 10:00 Calcium 8.0 mg/dL (8.5-10.4) L 07/18/18 04:23 Total Bilirubin 0.7 mg/dL (0.1-1.4) 07/15/18 09:13 Conjugated Bilirubin 0.4 mg/dL (0.0-0.5) 07/15/18 09:13 Unconjugated Bilirubin 0.3 mg/dL (0.0-1.1) 07/15/18 09:13 AST 27 IU/L (17-59) 07/15/18 09:13 ALT 19 IU/L (21-72) L 07/15/18 09:13 Alkaline Phosphatase 77 IU/L (38-126) 07/15/18 09:13 Total Protein 7.1 g/dL (6.3-8.2) 07/15/18 09:13 Albumin 3.8 g/dL (3.5-5.0) 07/15/18 09:13 Lipase 103 IU/L (23-300) 07/15/18 09:13 Urine Color YELLOW 07/15/18 12:05 Urine Appearance CLEAR 07/15/18 12:05 Urine pH 6.0 (5.0-7.5) 07/15/18 12:05 Ur Specific Boyds > 1.035 (1.002-1.030) H 07/15/18 12:05 Urine Protein NEGATIVE (NEGATIVE) 07/15/18 12:05 Urine Ketones NEGATIVE (NEGATIVE) 07/15/18 12:05 Urine Blood NEGATIVE (NEGATIVE) 07/15/18 12:05 Urine Nitrate NEGATIVE (NEGATIVE) 07/15/18 12:05 Urine Bilirubin NEGATIVE (NEGATIVE) 07/15/18 12:05 Urine Urobilinogen NEGATIVE EU (0.2-1.0) 07/15/18 12:05 Ur Leukocyte Esterase NEGATIVE (NEGATIVE) 07/15/18 12:05 Urine RBC 1-3 /hpf (0-3) 07/15/18 12:05 Urine WBC 1-3 /hpf (0-3) 07/15/18 12:05 Ur Epithelial Cells NONE SEEN /lpf (NONE-1+) 07/15/18 12:05 Urine Glucose NEGATIVE (NEGATIVE) 07/15/18 12:05 Microbiology: 07/15/18 Peritoneal fluid aspirate grew Streptococcus intermedius , susceptibilities pending. Blood cx (2) NGTD. Pathology: 07/15/18 Report diagnosis: A. Vermiform appendix: Periappendicitis, chronic and acute, mild, focal. No intrinsic appendicitis B. Adipose tissue consistent with omentum: Abscess, with severe acute inflammation. Chronic and eosinophilic inflammation, mild fibrosis. Imagining studies: 07/15/[address] impression: 1. Focus of fat stranding and phlegmonous change measuring 4.5 cm subjacent to the omental surface in the supraumbilical mid abdomen. This is adjacent to several small bowel loops but is far from the colon. Differential includes omental infarct, mesenteric infection, or acute fat necrosis, less likely epiploic appendicitis. No definite hernia repair material extends to this level. No drainable abscess at this time. Recommend repeat imaging in 4 weeks to ensure resolution. 2. Reactive ileitis and small amount of mesenteric edema/fluid. Scribe attestation: Pauline Gale, am scribing for, and in the presence of, Miriam Marcos MD. Miriam Gale MD, personally performed the services described in this documentation, as scribed by Pauline Murillo in my presence, and it is both accurate and complete. Greater than 70 minutes spent on this patients care, greater than 50% of time spent counseling, educating, and coordinating care regarding the above mentioned plan.
--- NOTE | 2018-07-18 14:23 | SOAPPROG ---
SOAP Progress Note Assessment/Plan: Assessment/Plan: 83 year old male s/p lap appy with partial omenectomy POD 3 Continue IV antibiotics - WBC decreased (18.8--->15) Pain control Cultures pending-prelim strep intermedius path-omental abscess, periappendicitis, no malignancy reported Clears adat Advance bowel regimen to produce softer stool and aid with bloating S: Laying comfortably in bed, no nausea, passing flatus, passed small amount of hard stool today O: pleasant well nourished, NAD Lungs CTA, no increased WOB HR regular Abdomen more distended than yesterday but softer and non painful to palpation, BS hypoactive Plan: 07/18/18 14:31 07/18/18 14:33 Objective: Vital Signs Temp Pulse Resp BP Pulse Ox 36.7 C 79 18 131/78 H 92 07/18/18 07:23 07/18/18 11:30 07/18/18 11:30 07/18/18 11:30 07/18/18 11:30 Laboratory Results 07/18/18 04:23 07/18/18 04:23 07/17/18 07/18/18 07/19/18 05:59 05:59 05:59 Intake Total 450 Balance 450 ICD10 Worksheet Patient Problems: Problems Problem Status Onset Abdominal pain Acute
--- NOTE | 2018-07-18 17:07 | HOSPPROG ---
Hospitalist Progress Note Assessment/Plan: * Omental abscess - unclear source - cx strep intermedius -s/p resection + I&D -empiric Ceftriaxone/Flagyl -will likely need repeat imaging * Incidental Acute appy s/p lap appy -per Dr. Hatch - not source of omental abscess * Post-op ileus -await return of bowel function -on clear liquids * ARF -on ACEI and ARB at home -DC lisinopril, increase ARB -creatinine back to baseline * Dilated CBD with gallstone -LFT normal * Essential Thrombocytosis -hydroxyurea * Pulmonary nodule -f/u CT 12 months * HTN -consider alternative regimen to ACEI + ARB -severe bradycardia with atenolol -edema with Norvasc Subjective: Still very distended, anxious about BP Objective: Vital Signs Temp Pulse Resp BP Pulse Ox 37.2 C 81 18 147/81 H 90 L 07/18/18 15:57 07/18/18 15:57 07/18/18 15:57 07/18/18 15:57 07/18/18 15:57 Laboratory Results 07/18/18 04:23 07/18/18 04:23 07/17/18 07/18/18 07/19/18 05:59 05:59 05:59 Intake Total 450 Balance 450 - Physical Exam Constitutional: no apparent distress, appears nourished, not in pain Cardiovascular: regular rate and rhythym, no murmur, rub, or gallop Respiratory: no respiratory distress, no rales or rhonchi, clear to auscultation Gastrointestinal: tenderness, distension, No normoactive bowel sounds, No guarding, No rebound Skin: no rashes or abrasions, no fluctuance, no induration Neurologic: AAOx3, sensation intact bilaterally Psychiatric: interacting appropriately, not anxious, not encephalopathic, thought process linear ICD10 Worksheet Patient Problems: Problems Problem Status Onset Abdominal pain Acute
[2018-07-19 05:54] LABS: PLATELET COUNT 519 10^3/uL (150-400)
[2018-07-19] MEDS: PANTOPRAZOLE SODIUM 40 MG TAB PO SCH (08:08)
[2018-07-19] MEDS: PRESERVISION AREDS2 FORMULA EYE VIT 1 EACH PO SCH ×2 (10:15→21:03)
[2018-07-19] MEDS: IRBESARTAN 150 MG TAB PO SCH (10:16)
[2018-07-19] MEDS: ATORVASTATIN CALCIUM 10 MG TAB PO SCH (10:16)
[2018-07-19] MEDS: ASPIRIN 81 MG CHEWABLE TAB PO SCH (10:16)
[2018-07-19] MEDS: SENNOSIDES/DOCUSATE SODIUM TAB PO SCH ×2 (10:17→22:54)
[2018-07-19] MEDS: HYDROXYUREA 500 MG CAP PO SCH (10:20)
--- NOTE | 2018-07-19 11:50 | SOAPPROG ---
SOAP Progress Note Assessment/Plan: Assessment/Plan: 83 year old male s/p lap appy with partial omenectomy POD 4 Nausea control, vomited several times (bile) this morning consider NG if unable to control emesis hold colace and senna this am-producing large amount stool Continue IV antibiotics - WBC decreased (15-->12) appreciate ID following caution with volume of PO intake S: feels better today, but nauseous, passing flatus, several BMs O: pleasant well nourished, NAD Lungs CTA, no increased WOB HR regular Abdomen still distended, less than yesterday but soft and non painful to palpation, BS hypoactive Plan: 07/18/18 14:31 07/18/18 14:33 07/19/18 11:43 07/19/18 13:42 Objective: Vital Signs Temp Pulse Resp BP Pulse Ox 36.9 C 81 20 149/87 H 89 L 07/19/18 07:31 07/19/18 07:31 07/19/18 07:31 07/19/18 07:31 07/19/18 07:31 Laboratory Results 07/19/18 04:29 07/19/18 04:29 07/18/18 07/19/18 07/20/18 05:59 05:59 05:59 Intake Total 755 Balance 755 ICD10 Worksheet Patient Problems: Problems Problem Status Onset Abdominal pain Acute
--- NOTE | 2018-07-19 14:24 | PCMIDPN ---
Assessment/Plan: # essential thrombocytosis and mild chronic leukocytosis # omental abscess and periappendicitis. Unclear why has omental abscess. Cultures show pure culture of Streptococcus intermedius. Does have dental abn, which could be possible source --continue IV ceftriaxone --dc flagyl --would probably get repeat CT in 2-4 weeks to re-assess for source --recommended getting dental issues cared for in short term --awaiting S. intermedius sensi meds ceftriaxone 1gm IV daily #4 flagyl 500mg IV q8h #3 Microbiology 07/17/18 16:34 Blood Cx (2) NGTD 07/15/18 21:35 Peritoneal Fluid - Aspirate Anaerobic Culture - Preliminary Streptococcus Intermedius Subjective: 1 episode of vomiting this AM but is better now less abdominal distension kept a smoothie down Objective: Vital Signs Temp Pulse Resp BP Pulse Ox 37.1 C 77 18 128/79 H 91 L 07/19/18 12:00 07/19/18 12:00 07/19/18 12:00 07/19/18 12:00 07/19/18 12:00 Laboratory Results 07/19/18 04:29 07/19/18 04:29 07/18/18 07/19/18 07/20/18 05:59 05:59 05:59 Intake Total 755 Balance 755 - Physical Exam General Appearance: alert, no apparent distress EENT: other (R upper molar with some gum irritation, filling somewhat open) Respiratory: lungs clear, No accessory muscle use Neck: supple Cardiac/Chest: regular rate, rhythm Extremities: No pedal edema Abdomen: non-tender, distended (but improved compared to yesterday), other ( hyperactive bowel sounds) Skin: No diaphoresis, No jaundice, No rash Neuro/Psych: alert, normal mood/affect, oriented x 3 - Time Spent With Patient Time Spent with Patient: greater than 35 minutes (care coordinated with Dr. Hatch) Time Spent with Patient: Greater than 35 minutes spent on this patients care, greater than 50% of time spent counseling, educating, and coordinating care regarding the above mentioned plan. ICD10 Worksheet Patient Problems: Problems Problem Status Onset Abdominal pain Acute
--- NOTE | 2018-07-19 16:27 | HOSPPROG ---
Hospitalist Progress Note Assessment/Plan: * Omental abscess - unclear source - cx strep intermedius -s/p resection + I&D -ID following, recommend continuing Ceftriaxone, d/c Flagyl -Awaiting S. intermedius sensitivities -ID recommending repeat CT in 2-4 weeks to reassess for source * Incidental Acute appy s/p lap appy -per Dr. 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 * Pulmonary nodule -f/u CT 12 months * HTN -consider alternative regimen to ACEI + ARB -severe bradycardia with atenolol -edema with Norvasc Subjective: Patient reports nausea with bilious vomiting this AM Objective: Vital Signs Temp Pulse Resp BP Pulse Ox 36.8 C 77 16 129/78 H 92 07/19/18 15:23 07/19/18 15:23 07/19/18 15:23 07/19/18 15:23 07/19/18 15:23 Laboratory Results 07/19/18 04:29 07/19/18 04:29 07/18/18 07/19/18 07/20/18 05:59 05:59 05:59 Intake Total 755 Balance 755 - Physical Exam Constitutional: uncomfortable Eyes: PERRL Ears, Nose, Mouth, Throat: moist mucous membranes Cardiovascular: regular rate and rhythym Respiratory: no respiratory distress Gastrointestinal: distension Skin: warm Neurologic: AAOx3 Psychiatric: interacting appropriately ICD10 Worksheet Patient Problems: Problems Problem Status Onset Abdominal pain Acute
[2018-07-20] MEDS: ASPIRIN 81 MG CHEWABLE TAB PO SCH (09:04)
[2018-07-20] MEDS: IRBESARTAN 150 MG TAB PO SCH (09:04)
[2018-07-20] MEDS: ATORVASTATIN CALCIUM 10 MG TAB PO SCH (09:04)
[2018-07-20] MEDS: PANTOPRAZOLE SODIUM 40 MG TAB PO SCH (09:04)
[2018-07-20] MEDS: PRESERVISION AREDS2 FORMULA EYE VIT 1 EACH PO SCH (09:05)
[2018-07-20] MEDS: HYDROXYUREA 500 MG CAP PO SCH (09:06)
[2018-07-20] MEDS: SENNOSIDES/DOCUSATE SODIUM TAB PO SCH (09:07)
--- NOTE | 2018-07-20 10:11 | PCMIDPN ---
Assessment/Plan: # essential thrombocytosis and mild chronic leukocytosis # omental abscess and periappendicitis. Unclear why has omental abscess. Cultures show pure culture of Streptococcus intermedius. Does have dental abn, which could be possible source. WBC may be difficult to follow w underlying spleen dysfunction from essential thrombocytosis --okay to DC on 10 more days Augmentin 875mg PO BID, start 07/21/18 --follow up in ID clinic 2:30 07/29/18 meds ceftriaxone 1gm IV daily #5 Microbiology 07/17/18 16:34 Blood Cx (2) NGTD 07/15/18 21:35 Peritoneal Fluid - Aspirate Anaerobic Culture - Preliminary Streptococcus Intermedius Subjective: patient feels tons better, wants to go home rec'd laxative yesterday w increased BMs but now slowing down no abdominal pain much less abdominal distension Objective: Vital Signs Temp Pulse Resp BP Pulse Ox 36.3 C 86 20 145/77 H 91 L 07/20/18 07:30 07/20/18 07:30 07/20/18 07:30 07/20/18 07:30 07/20/18 07:30 Laboratory Results 07/20/18 05:17 07/20/18 05:17 07/19/18 07/20/18 07/21/18 05:59 05:59 05:59 Intake Total 755 935 Output Total 200 Balance 755 735 General Appearance: alert, no apparent distress EENT: R upper molar with some gum irritation, filling somewhat open) Respiratory: lungs clear, No accessory muscle use Neck: supple Cardiac/Chest: regular rate, rhythm Extremities: No pedal edema Abdomen: non-tender, minimal distension, normal bs Skin: No diaphoresis, No jaundice, No rash Neuro/Psych: alert, normal mood/affect, oriented x 3 - Time Spent With Patient Time Spent with Patient: greater than 35 minutes (Reviewing risks and benefits of antibiotic therapy, planned follow-up and symptoms which would generate concern) Time Spent with Patient: Greater than 35 minutes spent on this patients care, greater than 50% of time spent counseling, educating, and coordinating care regarding the above mentioned plan. ICD10 Worksheet Patient Problems: Problems Problem Status Onset Abdominal pain Acute
--- NOTE | 2018-07-20 11:42 | SOAPPROG ---
SOAP Progress Note Assessment/Plan: Assessment/Plan: 83 year old male s/p lap appy with partial omenectomy POD 4 Nausea/emesis resolved WBC decreased (15-->12) chronic leukocytosis Possible dental infection aspect contributed to omental abscess, patient will get dental attention after d/c Wants to go home today-ok per ID will go home with Augmentin x 10 days. f/u with ID 3/5 f/u with Dr. Hatch in 1-2 weeks. No heavy lifting pushing or pulling more than 20 lbs for 3 weeks S: feels better today, passing flatus, several BMs, were quite soft now more formed. Better appetite. O: pleasant well nourished, NAD Lungs CTA, no increased WOB HR regular Abdomen less distended, but soft and non painful to palpation Incisions cdi 07/18/18 14:31 07/18/18 14:33 07/19/18 11:43 07/19/18 13:42 07/20/18 11:37 07/20/18 11:43 07/20/18 12:37 Objective: Vital Signs Temp Pulse Resp BP Pulse Ox 36.3 C 86 20 145/77 H 91 L 07/20/18 07:30 07/20/18 07:30 07/20/18 07:30 07/20/18 07:30 07/20/18 07:30 Laboratory Results 07/20/18 05:17 07/20/18 05:17 07/19/18 07/20/18 07/21/18 05:59 05:59 05:59 Intake Total 485 935 Output Total 200 Balance 759 961 ICD10 Worksheet Patient Problems: Problems Problem Status Onset Abdominal pain Acute
[2018-07-20 12:33] VITALS: BP 127/63
--- NOTE | 2018-07-20 13:00 | PDDCSUM ---
Discharge Summary Discharge Summary: Date of Admission: 07/16/2018 Date of Discharge: 07/20/2018 Consults: General Surgery, ID Procedures: Omental Abscess I&D Followup: ID on 07/29, General Surgery in 1-2 weeks, PCP Hospital Course Problem List: * Omental abscess - unclear source - cx strep intermedius -s/p resection + I&D on 06/2018 -ID consulted, s/p 5 days of Ceftriaxone - Peritoneal Cx growing S. intermedius -ID recommended discharge on Augmentin 875 mg BID for 10 day course -ID also recommending repeat CT in 2-4 weeks to reassess for source * Incidental Acute appy s/p lap appy -per Dr. 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
[2018-07-20] MEDS ORDERED: AMOXICILLIN/CLAVULANATE POT 875/125 MG TAB PO SCH (21:00)
== END 2018-07-20 14:21 | disposition home or self-care (01) | DRG 341 ==
LOC: INTOOBSV 11:41 → F3E 15:21 → OBSVTOIN 07-16 09:21
PROVIDERS: ADMIT Internal Medicine; ATTEND Internal Medicine
DX: K37 Unspecified appendicitis (principal); K65.1 Peritoneal abscess; J96.00 Acute respiratory failure, unspecified whether with hypoxia or hypercapnia; K91.89 Other postprocedural complications and disorders of digestive system; B95.4 Other streptococcus as the cause of diseases classified elsewhere; E86.9 Volume depletion, unspecified; I10 Essential (primary) hypertension; R91.1 Solitary pulmonary nodule; D47.3 Essential (hemorrhagic) thrombocythemia; K83.8 Other specified diseases of biliary tract; K80.20 Calculus of gallbladder without cholecystitis without obstruction; K52.9 Noninfective gastroenteritis and colitis, unspecified
CPT/HCPCS: 82435-PO; 82565-PO; 82947-PO; 84132-PO; 84295-PO; 84520-PO; 85014-ER; 96374; 97161-GP; 97165-GO; 97530-GO; 97535-GO; G0378; J0690; J0696; J1170; J2270; J2370; J2405; J2704; J3010

== ENCOUNTER → 2018-09-17 | Outpatient (CLI) | payer OTHER ==
[~2018-09-17] MED LIST: IOPAMIDOL (ISOVUE-300) 100 ML BTL ONE
== END ==
LOC: FIMAGING 09:47
PROVIDERS: ATTEND Internal Medicine Infectious Disease
DX: K83.8 Other specified diseases of biliary tract (principal); K80.20 Calculus of gallbladder without cholecystitis without obstruction; R91.8 Other nonspecific abnormal finding of lung field
CPT/HCPCS: 74177; Q9967